=== PATIENT | male | born 1980 | race Native Hawaiian/Other Pacific Islander ===

== ENCOUNTER 2018-11-23 20:36 | Emergency (ER) | payer OTHER ==
[2018-11-23 21:12] VITALS: BP 139/69
--- NOTE | 2018-11-23 21:12 | Emergency Department Report ---
Blank Doc - Documentation Documentation: This is a 38-year-odl male that presents with headache. Denies ever having he adache. This initial assessment/diagnostic orders/clinical plan/treatment(s) is/are subject to change based on patient's health status, clinical progression and re- assessment by fellow clinical providers in the ED. Further treatment and workup at subsequent clinical providers discretion. Patient/guardians urged not to elope from the ED as their condition may be serious if not clinically assessed and managed. Initial orders include: 1- Patient sent to [facility] for further evaluation and treatment 2- CT head
--- NOTE | 2018-11-23 22:14 | Cat Scan Report ---
PROCEDURE: CT HEAD/BRAIN WO CON TECHNIQUE: Axial helical imaging through the skull base to the vertex. HISTORY: headache COMPARISONS: None FINDINGS: There is no evidence of an acute intracranial process, intracranial hemorrhage or mass effect. The ventricles are normal size. Visualized portions of the orbits, paranasal and mastoid sinuses are notable for moderate to marked s phenoid sinus mucosal thickening with retained secretions an air-fluid level in the sphenoid sinus. The bony structures are unremarkable. IMPRESSION: 1. No evidence of an acute intracranial process, intracranial hemorrhage or mass effect. 2. Sphenoid sinus disease. Possible acute sinusitis. This document is electronically signed by Laura Howe MD., November 23 2018 10:12:12 PM ET
[2018-11-24] MEDS ORDERED: REGLAN PO ONE (00:59)
[2018-11-24] MEDS ORDERED: BENADRYL PO ONE (00:59)
[2018-11-24] MEDS ORDERED: TORADOL IM ONE (00:59)
--- NOTE | 2018-11-24 01:04 | Emergency Department Report ---
ED Headache HPI - General Chief Complaint: Headache Stated Complaint: HEADACHE Time Seen by Provider: 11/23/18 21:07 - History of Present Illness Initial Comments: Language line used for interpretation: Pt is a 38 yo male who presents to the ED with c/o a frontal BALBUENA that began a couple of days ago. He has associated sinus pressure. He denies any fever, congestion, vomiting, vision changes, numbness, or weakness. He has not taken any medication. Allergies/Adverse Reactions: Allergies No Known Allergies Allergy (Unverified 11/23/18 21:12) Home Medications: Ambulatory Orders Amoxicillin/K Clav Tab [Augmentin 875 mg] 1 tab PO Q12HR 10 Days #20 tab 11/24/18 Ibuprofen 600 mg PO Q6HR PRN #20 tablet 11/24/18 guaiFENesin [Mucinex] 600 mg PO BID #14 tab.er.12h 11/24/18 ED Review of Systems ROS: Stated complaint: HEADACHE Other details as noted in HPI Comment: All other systems reviewed and negative ED Past Medical Hx - Past Medical History Previous Medical History?: No - Surgical History Past Surgical History?: No - Social History Smoking Status: Never Smoker Substance Use Type: None - Medications Home Medications: Home Medications Medication Instructions Recorded Confirmed Last Taken Type Amoxicillin/K Clav Tab [Augmentin 1 tab PO Q12HR 10 Days #20 tab 11/24/18 Unknown Rx 875 mg] Ibuprofen 600 mg PO Q6HR PRN #20 tablet 11/24/18 Unknown Rx guaiFENesin [Mucinex] 600 mg PO BID #14 tab.er.12h 11/24/18 Unknown Rx ED Physical Exam - General Limitations: No Limitations General appearance: alert, in no apparent distress - Head Head exam: Present: atraumatic, normocephalic - Eye Eye exam: Present: normal appearance, PERRL, EOMI - ENT ENT exam: Present: normal orophraynx, other (moderate bilateral frontal sinus TTP, no TTP of the maxillary sinuses) - Neck Neck exam: Present: normal inspection. Absent: tenderness, meningismus - Respiratory Respiratory exam: Present: normal lung sounds bilaterally. Absent: respiratory distress, wheezes, rales, rhonchi, stridor, chest wall tenderness, accessory muscle use, decreased breath sounds, prolonged expiratory - Cardiovascular Cardiovascular Exam: Present: regular rate, normal rhythm, normal heart sounds. Absent: systolic murmur, rubs, gallop - Neurological Exam Neurological exam: Present: alert, oriented X3, CN II-XII intact, normal gait. Absent: motor sensory deficit - Psychiatric Psychiatric exam: Present: normal affect, normal mood - Skin Skin exam: Present: warm, dry, intact ED Course Vital Signs 11/23/18 11/24/18 21:09 01:31 Temperature 98.3 F Pulse Rate 73 68 Respiratory 20 17 Rate Blood Pressure 139/69 O2 Sat by Pulse 100 Oximetry ED Medical Decision Making - Lab Data Vital Signs 11/23/18 11/24/18 21:09 01:31 Temperature 98.3 F Pulse Rate 73 68 Respiratory 20 17 Rate Blood Pressure 139/69 O2 Sat by Pulse 100 Oximetry - Radiology Data Radiology results: report reviewed ISTORY: headache COMPARISONS: None FINDINGS: There is no evidence of an acute intracranial process, intracranial hemorrhage or mass effect. The ventricles are normal size. Visualized portions of the orbits, paranasal and mastoid sinuses are notable for moderate to marked sphenoid sinus mucosal thickening with retained secretions an air-fluid level in the sphenoid sinus. The bony structures are unremarkable. IMPRESSION: 1. No evidence of an acute intracranial process, intracranial hemorrhage or mass effect. 2. Sphenoid sinus disease. Possible acute sinusitis. This document is electronically signed by Laura Howe MD., November 23 2018 10:12:12 PM ET - Medical Decision Making Language line used for interpretation: Pt is a 38 yo male who presents to the ED with c/o a frontal BALBUENA that began a couple of days ago. He has associated sinus pressure. He denies any fever, congestion, vomiting, vision changes, numbness, or weakness. He has not taken any medication. VSS. no neuro deficits. bilateral sinus TTP frontal, aferbile. pt given medication for BALBUENA and completely resolved after medication. CT head shows sinusitis otherwise normal. Pt given abx for sinusitis. Advised to take all medication as prescribed. Follow up with PCP in the next 2-3 days. Return to the emergency room for any new or worsening symptoms. All of this discussed with patient by using the language line, pt agreed with plan and verbalized understanding. - Differential Diagnosis migraine, tension balbuena, cluster balbuena, sinusitis Critical care attestation.: If time is entered above; I have spent that time in minutes in the direct care of this critically ill patient, excluding procedure time. ED Disposition Clinical Impression: Sinus headache Sinusitis Qualifiers: Sinusitis location: unspecified location Chronicity: acute Recurrence: non- recurrent Qualified Code(s): J01.90 - Acute sinusitis, unspecified Disposition: TO HOME OR SELFCARE Is pt being admited?: No Does the pt Need Aspirin: No Condition: Stable Instructions: Sinusitis (ED) Additional Instructions: Follow up with a primary care doctor in the next 2-3 days. Take all medication a s prescribed. Return to the emergency room for any new or worsening symptoms as discussed. Prescriptions: Amoxicillin/K Clav Tab [Augmentin 875 mg] 1 tab PO Q12HR 10 Days #20 tab Ibuprofen 600 mg PO Q6HR PRN #20 tablet PRN Reason: Pain, Moderate (4-6) guaiFENesin [Mucinex] 600 mg PO BID #14 tab.er.12h Referrals: BENJAMIN CHAN MD [Primary Care Provider] - 2-3 Days Time of Disposition: 01:04 Print Language: MARTINIQU[place]IS
== END 2018-11-24 01:31 | disposition home or self-care (01) ==
LOC: ED 20:36
DX: J32.9 Chronic sinusitis, unspecified (principal)
CPT/HCPCS: 70450; 96372; 99283; J1885